=== PATIENT | male | born 1960 | race African-American/Black ===

== ENCOUNTER 2024-02-03 12:39 | Inpatient (IN) ==
[2024-02-03] MEDS: NS 0.9% 1000 ml BAG 1,000 ML IV ONE (13:28)
[2024-02-03] MEDS: Pantoprazole VIAL 40 MG VIAL IV ONE (13:32)
[2024-02-03 14:05] LABS: Hematocrit 19.8 % (38-53); Hemoglobin 6.5 g/dL (13.2-16.3); Mean Corpuscular Hemoglobin 30.5 pg (27-33); Mean Corpuscular Hgb Conc 32.6 g/dL (31-36); Mean Corpuscular Volume 93.3 fL (80-97); Red Blood Count 2.12 10^6/uL (4.06-5.63); Red Cell Distribution Width 14.2 % (12-17); White Blood Count 4.1 10^3/uL (3.6-10.2)
[2024-02-03] MEDS ORDERED: Succinylcholine 200 mg VIAL 20 mg/ml 10 ml VIAL (200 mg) ONE (14:50)
[2024-02-03] MEDS ORDERED: Rocuronium 50 mg VIAL 10 mg/ml 5 ml VIAL (50 mg) ONE (14:50)
[2024-02-03 14:54] LABS: ABS Lymphocytes 0.6 10^3/uL (1.0-4.8); ABS Monocytes 0.2 10^3/uL (0.0-1.1); ABS Neutrophils 3.3 10^3/uL (1.5-7.6); Eosinophil % 0.3 %; Lymphocyte % 13.7 %; Mean Platelet Volume 9.2 fL (7.5-11.2); Nucleated Red Blood Cells % 0.1 %/100WBC (0.0-0.8); Platelet Count 69 10^3/uL (150-450)
[2024-02-03] MEDS ORDERED: Propofol 10 mg/ml 100 ML BTL 1,000 MG/100 ML BTL ONE (14:57)
[2024-02-03] MEDS ORDERED: fentaNYL 100 mcg/2 ml 50 MCG/ML VIAL ONE (15:00)
[2024-02-03 15:28] LABS: Albumin/Globulin Ratio 1.8 (1-3); Calcium 4.7 mg/dL (8.6-10.3); Creatinine, Serum 0.45 mg/dL (0.67-1.17); Globulin 1.1 g/dL (2-4); Magnesium 1.1 mg/dL (1.9-2.7); Phosphorus 1.6 mg/dL (2.5-5.0); Potassium 2.7 mmol/L (3.5-5.0); Total Bilirubin 0.3 mg/dL (0.2-1.0); Total Protein 3.1 g/dL (6.4-8.9); eGFR CKD-EPI 116.9 (>60)
[2024-02-03] MEDS ORDERED: Norepinephrine 4 MG/250mL D5W 4,000 MCG/250 ML BAG IV ONE (15:48)
[2024-02-03] MEDS: Propofol 10 mg/ml 100 ML BTL 1,000 MG/100 ML BTL IV SCH ×2 (16:00→22:04)
[2024-02-03] MEDS: fentaNYL INFUSION 50 mcg/mL VL 2,500 MCG/50 ML VIAL IV SCH (16:00)
[2024-02-03] MEDS: Norepinephrine 4 MG/250mL D5W 4,000 MCG/250 ML BAG IV SCH (16:00)
[2024-02-03] MEDS ORDERED: fentaNYL INFUSION 50 mcg/mL VL 2,500 MCG/50 ML VIAL IV SCH (16:00)
[2024-02-03] MEDS: fentaNYL 100 mcg/2 ml 50 MCG/ML VIAL IV SLOW PU PRN (16:39)
[2024-02-03] MEDS: Midazolam 2 mg/2 ml VIAL 1 mg/ml 2 ml VIAL (2 mg) IV SLOW PU ONE (16:39)
[2024-02-03] MEDS: fentaNYL 100 mcg/2 ml 50 MCG/ML VIAL ONE (17:07)
[2024-02-03] MEDS: Midazolam 5 mg/5 ml VIAL 1 mg/ml 5 ml VIAL (5 mg) ONE (17:07)
[2024-02-03] MEDS: Chlorhexidine MOUTHWASH 0.12% 15 ML UDC TOPICAL SCH (17:07)
[2024-02-03] MEDS: Calcium Gluconate 2 GM in NS 0.9% 100 ml BAG 100 ML IVPB ONE (17:08)
[2024-02-03] MEDS: Magnesium Sulfate 2 gm BAG 2 GM/50 ML BAG IVPB ONE (17:55)
[2024-02-03] MEDS: Pantoprazole 80 mg in NS BAG 80 MG/250 ML BAG IV SCH (18:01)
[2024-02-03] MEDS: Erythromycin Lactobionate IV 250 MG in NS 0.9% 100 ml BAG 100 ML IVPB ONE (18:01)
[2024-02-03 18:34] LABS: Urine Appearance Clear; Urine Bilirubin Negative (Negative); Urine Blood Negative (Negative); Urine Color Light-Yellow; Urine Glucose Negative (Negative); Urine Ketones Negative (Negative); Urine Nitrite Negative (Negative); Urine Protein Trace (Negative); Urine Specific Gravity 1.011 (1.002-1.030); Urine Urobilinogen Negative (Negative)
[2024-02-03 18:35] LABS: ABS Lymphocytes 1.3 10^3/uL (1.0-4.8); ABS Monocytes 0.6 10^3/uL (0.0-1.1); ABS Neutrophils 8.3 10^3/uL (1.5-7.6); ABS Nucleated RBC 0.02 10^3/ul; Eosinophil % 0.2 %; Lymphocyte % 12.7 %; Mean Corpuscular Hgb Conc 33.4 g/dL (31-36); Mean Corpuscular Volume 89.7 fL (80-97); Nucleated Red Blood Cells % 0.2 %/100WBC (0.0-0.8); Platelet Count 77 10^3/uL (150-450); Red Blood Count 4.68 10^6/uL (4.06-5.63); Red Cell Distribution Width 14.9 % (12-17); White Blood Count 10.3 10^3/uL (3.6-10.2)
[2024-02-03 18:59] LABS: High Sensitivity Troponin 1 Hr 31 pg/mL (<20)
[2024-02-03 19:01] LABS: Calcium 7.9 mg/dL (8.6-10.3); Creatinine, Serum 0.69 mg/dL (0.67-1.17); Magnesium 1.7 mg/dL (1.9-2.7); Phosphorus 3.7 mg/dL (2.5-5.0); Potassium 4.9 mmol/L (3.5-5.0); eGFR CKD-EPI 102.7 (>60)
[2024-02-03] MEDS: metroNIDAZOLE IV 500 MG/100ML 500 MG/100 ML BAG IVPB SCH (19:53)
[2024-02-03] MEDS: Cefepime 2 GM in Dextrose 2 GM/50 ML BAG IV SCH (19:53)
[2024-02-03] MEDS: CALCIUM GLUCONATE 1GM/50ML NS 1 GM/50 ML BAG IV ONE (21:50)
[2024-02-03] MEDS: Iodixanol (CONTRAST) 320 MG/ML 100 ML SDV IV ONE (22:03)
[2024-02-04 00:37] LABS: Calcium 8.2 mg/dL (8.6-10.3); Creatinine, Serum 0.67 mg/dL (0.67-1.17); Magnesium 2.2 mg/dL (1.9-2.7); Potassium 4.5 mmol/L (3.5-5.0); eGFR CKD-EPI 103.6 (>60)
[2024-02-04] MEDS: Midazolam 5 mg/5 ml VIAL 1 mg/ml 5 ml VIAL (5 mg) IV SLOW PU ONE (04:56)
[2024-02-04] MEDS: Midazolam 5 mg/5 ml VIAL 1 mg/ml 5 ml VIAL (5 mg) ONE (05:01)
[2024-02-04 05:06] VITALS: BP 95/57
== END 2024-02-04 06:30 | disposition short-term general hospital (02) | DRG 663 ==
LOC: ED 12:39 → EDHOLD 15:15 → ICU 16:37
PROVIDERS: ADMIT Student in an Organized Health Care Education/Training Program; ATTEND Student in an Organized Health Care Education/Training Program

== ENCOUNTER 2024-10-03 09:24 | Observation (INO) ==
[~2024-10-03 09:24] MED LIST: Dexamethasone IV 4 MG/ML VIAL 1 ml VIAL ONE; Lidocaine 2% PF 5 ML VIAL ONE; Metoclopramide 5 MG/ML VIAL (10 mg) IV PRN; Midazolam 2 mg/2 ml VIAL 1 mg/ml 2 ml VIAL (2 mg) ONE; NS 0.45% 1000 ml BAG 1,000 ML IV SCH; Naloxone 0.4 mg VIAL 0.4 mg/ml 1 ml VIAL IV PRN; Ondansetron 4 mg VIAL 2 MG/ML 2 ml VIAL IV PRN; Ondansetron 4 mg VIAL 2 MG/ML 2 ml VIAL ONE; Propofol 10 MG/ML 20 ML BTL ONE; Rocuronium 50 mg VIAL 10 mg/ml 5 ml VIAL (50 mg) ONE; fentaNYL 250 mcg/5 ml 50 MCG/ML 5 ml VIAL (250 MCG) ONE
[2024-10-03 09:57] LABS: Urine Appearance Clear; Urine Bilirubin Negative (Negative); Urine Blood Negative (Negative); Urine Color Light-Yellow; Urine Glucose Negative (Negative); Urine Ketones Negative (Negative); Urine Nitrite Negative (Negative); Urine Protein Negative (Negative); Urine Specific Gravity 1.017 (1.002-1.030); Urine Urobilinogen Negative (Negative)
[2024-10-03] MEDS: Buffered Lidocaine 1% SYRIN 1 ml INTRADERM ONE (10:00)
[2024-10-03 10:16] LABS: Rapid COVID-19 Molecular Undetected (Undetected)
[2024-10-03] MEDS ORDERED: ceFAZolin 2 GM PREMIX 2 GM/50 ML BAG ONE (10:22)
[2024-10-03] MEDS ORDERED: Tranexamic Acid 1 GM/100ML BAG 2,000 MG/200 ML BAG IV ONE (10:22)
[2024-10-03 10:25] LABS: ABS Lymphocytes 1.7 10^3/uL (1.0-4.8); ABS Monocytes 0.4 10^3/uL (0.0-1.1); ABS Neutrophils 1.6 10^3/uL (1.5-7.6); Eosinophil % 0.8 %; Hematocrit 44.5 % (38-53); Hemoglobin 15.1 g/dL (13.2-16.3); Lymphocyte % 44.6 %; Mean Corpuscular Hemoglobin 32.5 pg (27-33); Mean Corpuscular Hgb Conc 33.9 g/dL (31-36); Mean Corpuscular Volume 95.9 fL (80-97); Mean Platelet Volume 9.2 fL (7.5-11.2); Platelet Count 160 10^3/uL (150-450); Red Blood Count 4.64 10^6/uL (4.06-5.63); Red Cell Distribution Width 13.4 % (12-17); White Blood Count 3.8 10^3/uL (3.6-10.2)
[2024-10-03] MEDS: Lactated Ringers 1000 ml BAG 1,000 ML IV SCH ×2 (10:32→18:24)
[2024-10-03] MEDS: Scopolamine 1 mg/72hr PATCH TRANSDERM ONE (10:32)
[2024-10-03] MEDS ORDERED: Lidocaine 1% w EPI 1:100,000 MDV 50 ML VIAL ONE (10:33)
[2024-10-03] MEDS ORDERED: Vancomycin 1,000 MG VIAL ONE (10:34)
[2024-10-03 10:35] LABS: Activated Partial Thrombo Time 39.7 seconds (26.0-38.0); INR 1.19 (0.85-1.14)
[2024-10-03] MEDS ORDERED: Ondansetron ODT 4 mg TAB 4 MG TAB PO PRN (11:05)
[2024-10-03] MEDS ORDERED: Lactulose 30 ml UDC PO PRN (11:05)
[2024-10-03] MEDS ORDERED: Ondansetron 4 mg VIAL 2 MG/ML 2 ml VIAL IV PRN (11:05)
[2024-10-03] MEDS ORDERED: Magnesium Hydroxide LIQ 30 ML UDC PO PRN (11:05)
[2024-10-03] MEDS ORDERED: Morphine 2 MG/ML SYRINGE IV PRN (11:05)
[2024-10-03 11:10] LABS: Albumin 4.2 g/dL (3.5-5.7); Albumin/Globulin Ratio 1.4 (1-3); Calcium 9.2 mg/dL (8.6-10.3); Creatinine, Serum 0.65 mg/dL (0.67-1.17); Globulin 2.9 g/dL (2-4); Potassium 4.5 mmol/L (3.5-5.0); Total Bilirubin 0.4 mg/dL (0.2-1.0); Total Protein 7.1 g/dL (6.4-8.9); eGFR CKD-EPI 103.9 (>60)
[2024-10-03] MEDS ORDERED: Dexamethasone IV 4 MG/ML VIAL 1 ml VIAL ONE (12:17)
[2024-10-03] MEDS ORDERED: Sodium Chloride 0.9% 10 ML ONE (13:07)
[2024-10-03] MEDS ORDERED: HYDROmorphone 0.5 MG/0.5 ML SYRINGE ONE (13:09)
[2024-10-03 14:37] LABS: Hematocrit 38.5 % (38-53); Hemoglobin 13.1 g/dL (13.2-16.3)
[2024-10-03] MEDS ORDERED: fentaNYL 100 mcg/2 ml 50 MCG/ML VIAL ONE ×2 (15:06→16:05)
[2024-10-03] MEDS: fentaNYL 100 mcg/2 ml 50 MCG/ML VIAL IV PRN (16:06)
[2024-10-03] MEDS: ceFAZolin 2 GM PREMIX 2 GM/50 ML BAG IV SCH (20:11)
[2024-10-03] MEDS: Acetaminophen IV 1 GM/100ML 1,000 MG/100 ML BAG IV ONE (21:42)
[2024-10-03] MEDS: Magnesium Hydroxide LIQ 30 ML UDC PO SCH (21:42)
[2024-10-04 01:14] LABS: Hematocrit 28.5 % (38-53); Hemoglobin 9.8 g/dL (13.2-16.3)
[2024-10-04 05:18] LABS: Hematocrit 27.9 % (38-53); Hemoglobin 9.7 g/dL (13.2-16.3); Mean Platelet Volume 9.3 fL (7.5-11.2); Platelet Count 125 10^3/uL (150-450)
[2024-10-04 05:40] LABS: Calcium 7.7 mg/dL (8.6-10.3); Creatinine, Serum 0.67 mg/dL (0.67-1.17); Potassium 4.1 mmol/L (3.5-5.0)
[2024-10-04] MEDS: OLANZapine 10 mg TAB*ODT PO SCH (09:23)
[2024-10-04] MEDS: Vitamin THERAPEUTIC TAB PO SCH (09:24)
[2024-10-04] MEDS: Calcium Carb (TUMS) 500 mg CHEW TAB PO PRN (16:55)
[2024-10-05 07:17] LABS: Hematocrit 24.8 % (38-53); Hemoglobin 8.7 g/dL (13.2-16.3)
[2024-10-05 07:40] LABS: Mean Platelet Volume 9.8 fL (7.5-11.2); Platelet Count 99 10^3/uL (150-450)
[2024-10-05 08:52] LABS: Calcium 7.4 mg/dL (8.6-10.3); Creatinine, Serum 0.54 mg/dL (0.67-1.17); Potassium 4.3 mmol/L (3.5-5.0); eGFR CKD-EPI 109.9 (>60)
[2024-10-05 13:11] LABS: Hematocrit 25.8 % (38-53)
[2024-10-05 15:07] VITALS: BP 102/68
== END 2024-10-05 18:15 ==
LOC: SSU 09:24 → OR 09:24 → SSU 18:18
PROVIDERS: ADMIT Student in an Organized Health Care Education/Training Program; ATTEND Orthopaedic Surgery